=== PATIENT | male | born 1955 | race Caucasian/White ===

== ENCOUNTER 2019-07-03 10:49 | Inpatient (IN) ==
[2019-07-03] MEDS ORDERED: DOCUSATE SODIUM 100 MG CAPSULE PO PRN (13:44)
[2019-07-03] MEDS ORDERED: diphenhydrAMINE CAP 25 MG CAPSULE PO PRN (13:44)
[2019-07-03] MEDS ORDERED: ONDANSETRON 4 MG/2 ML VIAL IV PRN (13:44)
[2019-07-03] MEDS ORDERED: CALCIUM CARBONATE CHEW 500 MG TABLET PO PRN (13:44)
[2019-07-03] MEDS ORDERED: BISACODYL 5 MG TABLET PO PRN (13:44)
[2019-07-03] MEDS ORDERED: hydrALAZINE 20 MG/1 ML VIAL IV PRN (13:44)
[2019-07-03] MEDS ORDERED: ZALEPLON 5 MG CAPSULE PO PRN (13:44)
[2019-07-03] MEDS ORDERED: traZODone 50 MG TABLET PO PRN (13:44)
[2019-07-03 14:01] LABS: Basophils % 0.3 % (0.0-0.8); Eosinophils # 0.1 10*3/uL (0.0-0.87); Eosinophils % 2.1 % (0.00-10.9); Hematocrit 37.2 VOL% (42.0-52.0); Immature Granulocytes % 0.3 %; Immature Granulocytes Absolute 0.02 #; Lymphocytes # 1.1 10*3/uL (1.4-4.0); Lymphocytes % 16.4 % (21.2-54.2); Mean Corpuscular HGB Conc 32.3 GM/DL (32-36); Mean Corpuscular Volume 91.9 FL (87-102); Mean Platelet Volume 9.6 FL (9.6-12.0); Monocytes % 10.1 % (1.7-12.7); Neutrophils % 70.8 % (38.7-73.9); Platelet Count 184 T/CUMM (130-400); Red Blood Count 4.05 MC/CUMM (3.8-5.5); Red Cell Distribution Width 12.8 % (9.3-17.3); White Blood Count 6.7 T/CUMM (4-12)
[2019-07-03 14:18] LABS: ABG Base Excess -0.2 MMOL/L (-2.5-2.5); ABG HCO3 24.2 MMOL/L (20-26); ABG Oxygen Saturation 94.4 % (95-100); ABG PCO2 32.4 MM HG (35-48); ABG PH 7.457 (7.35-7.45); ABG PO2 68.1 MM HG (80-95); ABG TCO2 19.7 MMOL/L (23-27)
[2019-07-03] MEDS ORDERED: POTASSIUM CHLORIDE RIDER 10 MEQ in PREMIX 1 EACH IV PRN (14:25)
[2019-07-03] MEDS ORDERED: MAGNESIUM SULF RIDER 4 GM in PREMIX 1 EACH IV PRN (14:25)
[2019-07-03] MEDS ORDERED: MAGNESIUM SULF RIDER 2 GM in PREMIX 1 EACH IV PRN (14:25)
[2019-07-03 14:29] LABS: Albumin 2.8 G/DL (3.4-5.0); Bilirubin,Total 0.7 MG/DL (0.2-1.0); Calcium 7.7 MG/DL (8.5-10.1); Ferritin 589.5 ng/ml (26-388); Total Protein 6.9 G/DL (6.4-8.3)
[2019-07-03 14:40] LABS: Eosinophils 1 % (0-10); Lymphocytes 13 % (20-55); Nucleated Red Blood Cells 1 (0-5); Platelet Estimate Normal; Segmented Neutrophils 77 % (50-85); Total Cells Counted 100
[2019-07-03] MEDS: ACETAMINOPHEN 325 MG TABLET PO PRN (16:35)
[2019-07-03] MEDS: cefTRIAXone 1,000 MG in SYRINGE 1 EACH IV SCH (16:35)
[2019-07-03 16:39] LABS: Sedimentation Rate-Westergren 98 MM/HR (0-20)
[2019-07-03] MEDS: AZITHROMYCIN 250 MG TABLET PO SCH (21:05)
[2019-07-03] MEDS: ENOXAPARIN 40 MG/0.4 ML SYRINGE SUBCUT SCH (21:05)
[2019-07-04 05:06] LABS: Basophils % 0.3 % (0.0-0.8); Eosinophils # 0.2 10*3/uL (0.0-0.87); Eosinophils % 2.8 % (0.00-10.9); Hematocrit 36.3 VOL% (42.0-52.0); Hemoglobin 12.3 GM/DL (14.0-18.0); Immature Granulocytes % 0.5 %; Immature Granulocytes Absolute 0.04 #; Lymphocytes # 1.2 10*3/uL (1.4-4.0); Lymphocytes % 15.7 % (21.2-54.2); Mean Corpuscular HGB Conc 33.9 GM/DL (32-36); Mean Corpuscular Volume 89.4 FL (87-102); Mean Platelet Volume 9.7 FL (9.6-12.0); Monocytes % 10.4 % (1.7-12.7); Neutrophils % 70.3 % (38.7-73.9); Platelet Count 215 T/CUMM (130-400); Red Blood Count 4.06 MC/CUMM (3.8-5.5); Red Cell Distribution Width 12.9 % (9.3-17.3); White Blood Count 7.4 T/CUMM (4-12)
[2019-07-04 05:26] LABS: Allen Test Positive
[2019-07-04 05:29] LABS: ABG Base Excess 0.6 MMOL/L (-2.5-2.5); ABG HCO3 23.5 MMOL/L (20-26); ABG PCO2 32.1 MM HG (35-48); ABG PH 7.482 (7.35-7.45); ABG PO2 89.8 MM HG (80-95); ABG TCO2 24.5 MMOL/L (23-27)
[2019-07-04 05:32] LABS: Eosinophils 6 % (0-10); Lymphocytes 14 % (20-55); Platelet Estimate Adequate; Segmented Neutrophils 70 % (50-85); Total Cells Counted 100
[2019-07-04 05:33] LABS: Hypochromasia Slight; Ovalocytes Slight
[2019-07-04 05:38] LABS: Risk Ratio 2.81; Thyroid Stimulating Hormone 0.929 uIU/ml (0.358-3.74); VLDL CHOLESTEROL 15.4 MG/DL
[2019-07-04 05:58] LABS: Albumin 2.6 G/DL (3.4-5.0); Bilirubin,Total 0.8 MG/DL (0.2-1.0); Osmolality,Calculated 268.1 MOS/KG (273-304); Total Protein 6.9 G/DL (6.4-8.3)
[2019-07-04 06:16] LABS: Sedimentation Rate-Westergren 96 MM/HR (0-20)
[2019-07-04] MEDS: PANTOPRAZOLE 40 MG TABLET PO SCH (09:50)
[2019-07-04] MEDS: cefTRIAXone 1,000 MG in SYRINGE 1 EACH IV SCH (09:50)
[2019-07-04] MEDS: ACETAMINOPHEN 325 MG TABLET PO PRN (15:54)
[2019-07-04] MEDS: AZITHROMYCIN 250 MG TABLET PO SCH (21:10)
[2019-07-04] MEDS: ENOXAPARIN 40 MG/0.4 ML SYRINGE SUBCUT SCH (21:10)
[2019-07-05 04:32] LABS: ABG Base Excess 0.3 MMOL/L (-2.5-2.5); ABG HCO3 24.6 MMOL/L (20-26); ABG Oxygen Saturation 95.7 % (95-100); ABG PO2 72.9 MM HG (80-95); ABG TCO2 20.6 MMOL/L (23-27); Allen Test Positive
[2019-07-05] MEDS: ACETAMINOPHEN 325 MG TABLET PO PRN ×2 (04:40→16:20)
[2019-07-05] MEDS: PANTOPRAZOLE 40 MG TABLET PO SCH (10:16)
[2019-07-05] MEDS: cefTRIAXone 1,000 MG in SYRINGE 1 EACH IV SCH (11:15)
[2019-07-05] MEDS: ENOXAPARIN 40 MG/0.4 ML SYRINGE SUBCUT SCH (20:35)
[2019-07-05] MEDS: AZITHROMYCIN 250 MG TABLET PO SCH (20:35)
[2019-07-06 03:32] LABS: ABG Base Excess 0.6 MMOL/L (-2.5-2.5); ABG HCO3 24.9 MMOL/L (20-26); ABG Oxygen Saturation 95.1 % (95-100); ABG PCO2 28.9 MM HG (35-48); ABG PH 7.504 (7.35-7.45); ABG PO2 68.1 MM HG (80-95); Allen Test Positive; Pt O2 Delivery Device Other
[2019-07-06] MEDS ORDERED: SODIUM CHLORIDE 0.65% NASAL SPRAY 45 ML BOTTLE BOTH NARES PRN (07:46)
[2019-07-06] MEDS: cefTRIAXone 1,000 MG in SYRINGE 1 EACH IV SCH (09:45)
[2019-07-06] MEDS: PANTOPRAZOLE 40 MG TABLET PO SCH (09:48)
[2019-07-06] MEDS: ACETAMINOPHEN 325 MG TABLET PO PRN (14:33)
[2019-07-06] MEDS: ENOXAPARIN 40 MG/0.4 ML SYRINGE SUBCUT SCH (20:26)
[2019-07-06] MEDS: AZITHROMYCIN 250 MG TABLET PO SCH (20:26)
[2019-07-07] MEDS: cefTRIAXone 1,000 MG in SYRINGE 1 EACH IV SCH (08:31)
[2019-07-07] MEDS: PANTOPRAZOLE 40 MG TABLET PO SCH (08:31)
[2019-07-07] MEDS: ENOXAPARIN 40 MG/0.4 ML SYRINGE SUBCUT SCH ×2 (08:31→21:44)
[2019-07-07] MEDS ORDERED: SODIUM CHLORIDE 0.9% 1,000 ML IV PRN (08:55)
[2019-07-07 15:15] LABS: ABG Base Excess 0.8 MMOL/L (-2.5-2.5); ABG HCO3 25.1 MMOL/L (20-26); ABG PCO2 30.1 MM HG (35-48); ABG PH 7.496 (7.35-7.45); ABG PO2 73.5 MM HG (80-95); ABG TCO2 20.5 MMOL/L (23-27)
[2019-07-07] MEDS: guaiFENesin/DM ER 600-30 MG TABLET PO PRN (16:45)
[2019-07-07] MEDS: ACETAMINOPHEN 325 MG TABLET PO PRN (17:38)
[2019-07-08 07:27] LABS: Basophils % 0.3 % (0.0-0.8); Eosinophils # 0.2 10*3/uL (0.0-0.87); Eosinophils % 2.4 % (0.00-10.9); Hematocrit 34.7 VOL% (42.0-52.0); Immature Granulocytes % 1.1 %; Immature Granulocytes Absolute 0.09 #; Lymphocytes # 1.2 10*3/uL (1.4-4.0); Lymphocytes % 15.3 % (21.2-54.2); Mean Corpuscular HGB Conc 34.6 GM/DL (32-36); Mean Corpuscular Volume 87.8 FL (87-102); Mean Platelet Volume 8.7 FL (9.6-12.0); Monocytes % 12.9 % (1.7-12.7); Platelet Count 327 T/CUMM (130-400); Red Blood Count 3.95 MC/CUMM (3.8-5.5); Red Cell Distribution Width 12.2 % (9.3-17.3); White Blood Count 7.9 T/CUMM (4-12)
[2019-07-08] MEDS: ENOXAPARIN 40 MG/0.4 ML SYRINGE SUBCUT SCH ×2 (08:52→20:03)
[2019-07-08] MEDS: PANTOPRAZOLE 40 MG TABLET PO SCH (08:52)
[2019-07-08 10:38] LABS: ABG Base Excess 0.7 MMOL/L (-2.5-2.5); ABG Oxygen Saturation 96.8 % (95-100); ABG PCO2 34.1 MM HG (35-48); ABG PH 7.456 (7.35-7.45); ABG PO2 84.3 MM HG (80-95); ABG TCO2 21.1 MMOL/L (23-27)
[2019-07-08 13:43] LABS: Albumin 2.2 G/DL (3.4-5.0); Bilirubin,Total 0.4 MG/DL (0.2-1.0); Calcium 8.3 MG/DL (8.5-10.1); Ferritin 496.5 ng/ml (26-388); Osmolality,Calculated 266.4 MOS/KG (273-304); Total Protein 7.2 G/DL (6.4-8.3)
[2019-07-08] MEDS: guaiFENesin/DM ER 600-30 MG TABLET PO PRN (18:17)
[2019-07-09 05:42] LABS: Basophils % 0.4 % (0.0-0.8); Eosinophils # 0.2 10*3/uL (0.0-0.87); Eosinophils % 3.1 % (0.00-10.9); Hematocrit 35.7 VOL% (42.0-52.0); Hemoglobin 11.8 GM/DL (14.0-18.0); Immature Granulocytes % 1.1 %; Immature Granulocytes Absolute 0.08 #; Lymphocytes # 1.2 10*3/uL (1.4-4.0); Lymphocytes % 16.4 % (21.2-54.2); Mean Corpuscular HGB Conc 33.1 GM/DL (32-36); Mean Corpuscular Volume 90.2 FL (87-102); Mean Platelet Volume 8.8 FL (9.6-12.0); Monocytes % 12.9 % (1.7-12.7); Neutrophils % 66.1 % (38.7-73.9); Platelet Count 339 T/CUMM (130-400); Red Blood Count 3.96 MC/CUMM (3.8-5.5); Red Cell Distribution Width 12.3 % (9.3-17.3); White Blood Count 7.5 T/CUMM (4-12)
[2019-07-09 06:07] LABS: Albumin 2.1 G/DL (3.4-5.0); Bilirubin,Total 0.5 MG/DL (0.2-1.0); Calcium 8.4 MG/DL (8.5-10.1); Ferritin 439.1 ng/ml (26-388); Total Protein 6.9 G/DL (6.4-8.3)
[2019-07-09 06:53] LABS: Sedimentation Rate-Westergren 92 MM/HR (0-20)
[2019-07-09 07:13] LABS: ABG Base Excess 1.7 MMOL/L (-2.5-2.5); ABG HCO3 25.9 MMOL/L (20-26); ABG Oxygen Saturation 96.4 % (95-100); ABG PH 7.439 (7.35-7.45); ABG PO2 82.8 MM HG (80-95); ABG TCO2 22.7 MMOL/L (23-27); Allen Test Positive; Pt O2 Delivery Device Other
[2019-07-09] MEDS: ENOXAPARIN 40 MG/0.4 ML SYRINGE SUBCUT SCH ×2 (08:38→20:44)
[2019-07-09] MEDS: guaiFENesin/DM ER 600-30 MG TABLET PO PRN (17:35)
[2019-07-10 04:20] LABS: Allen Test Positive
[2019-07-10 04:21] LABS: ABG Base Excess 0.7 MMOL/L (-2.5-2.5); ABG HCO3 24.6 MMOL/L (20-26); ABG Oxygen Saturation 90.7 % (95-100); ABG PCO2 36.8 MM HG (35-48); ABG PH 7.443 (7.35-7.45); ABG PO2 60.1 MM HG (80-95); ABG TCO2 25.7 MMOL/L (23-27)
[2019-07-10] MEDS: guaiFENesin/DM ER 600-30 MG TABLET PO PRN ×2 (04:51→12:21)
[2019-07-10 08:00] LABS: Basophils % 0.4 % (0.0-0.8); Eosinophils # 0.3 10*3/uL (0.0-0.87); Eosinophils % 2.8 % (0.00-10.9); Hematocrit 36.1 VOL% (42.0-52.0); Hemoglobin 12.3 GM/DL (14.0-18.0); Immature Granulocytes Absolute 0.09 #; Lymphocytes # 1.4 10*3/uL (1.4-4.0); Lymphocytes % 15.7 % (21.2-54.2); Mean Corpuscular HGB Conc 34.1 GM/DL (32-36); Mean Corpuscular Volume 88.5 FL (87-102); Monocytes % 10.9 % (1.7-12.7); Neutrophils % 69.2 % (38.7-73.9); Platelet Count 368 T/CUMM (130-400); Red Blood Count 4.08 MC/CUMM (3.8-5.5); Red Cell Distribution Width 12.3 % (9.3-17.3); White Blood Count 9.2 T/CUMM (4-12)
[2019-07-10] MEDS: ENOXAPARIN 40 MG/0.4 ML SYRINGE SUBCUT SCH ×2 (08:27→20:33)
[2019-07-10 08:45] LABS: Albumin 2.1 G/DL (3.4-5.0); Bilirubin,Total 0.7 MG/DL (0.2-1.0); Calcium 8.7 MG/DL (8.5-10.1); Ferritin 450.5 ng/ml (26-388); Osmolality,Calculated 268.2 MOS/KG (273-304); Total Protein 7.2 G/DL (6.4-8.3)
[2019-07-10 09:11] LABS: Sedimentation Rate-Westergren 104 MM/HR (0-20)
[2019-07-11 04:00] LABS: ABG Base Excess 2.1 MMOL/L (-2.5-2.5); ABG HCO3 26.2 MMOL/L (20-26); ABG Oxygen Saturation 95.7 % (95-100); ABG PCO2 39.7 MM HG (35-48); ABG PH 7.431 (7.35-7.45); ABG PO2 77.6 MM HG (80-95); ABG TCO2 23.3 MMOL/L (23-27); Allen Test Positive
[2019-07-11] MEDS: guaiFENesin/DM ER 600-30 MG TABLET PO PRN (04:11)
[2019-07-11 06:36] LABS: Basophils # 0.1 10*3/uL (0.0-0.2); Basophils % 0.7 % (0.0-0.8); Eosinophils # 0.3 10*3/uL (0.0-0.87); Eosinophils % 3.8 % (0.00-10.9); Hemoglobin 12.2 GM/DL (14.0-18.0); Immature Granulocytes % 0.9 %; Immature Granulocytes Absolute 0.07 #; Lymphocytes # 1.4 10*3/uL (1.4-4.0); Lymphocytes % 18.9 % (21.2-54.2); Mean Corpuscular HGB Conc 33.9 GM/DL (32-36); Mean Corpuscular Volume 88.9 FL (87-102); Mean Platelet Volume 8.7 FL (9.6-12.0); Monocytes % 11.4 % (1.7-12.7); Neutrophils % 64.3 % (38.7-73.9); Platelet Count 383 T/CUMM (130-400); Red Blood Count 4.05 MC/CUMM (3.8-5.5); Red Cell Distribution Width 12.3 % (9.3-17.3); White Blood Count 7.6 T/CUMM (4-12)
[2019-07-11 07:03] LABS: Albumin 2.1 G/DL (3.4-5.0); Bilirubin,Total 0.6 MG/DL (0.2-1.0); Ferritin 416.9 ng/ml (26-388); Osmolality,Calculated 267.2 MOS/KG (273-304); Total Protein 7.2 G/DL (6.4-8.3)
[2019-07-11 07:40] LABS: Sedimentation Rate-Westergren 73 MM/HR (0-20)
[2019-07-11] MEDS: ENOXAPARIN 40 MG/0.4 ML SYRINGE SUBCUT SCH (09:47)
[2019-07-11 12:50] VITALS: BP 127/67
== END 2019-07-11 14:45 | disposition home health service (06) | DRG 177 ==
LOC: INTOOBSV 11:24 → SUATTDRO 11:24 → N.2E 11:24 → SUPCPDRO 07-04 13:56 → N.2W 07-07 16:17
PROVIDERS: ADMIT Internal Medicine; ATTEND Internal Medicine